=== PATIENT | female | born 1955 | race Caucasian/White ===

== ENCOUNTER → 2017-07-09 | Outpatient (CLI) | payer OTHER ==
[~2017-07-09] MED LIST: REGADENOSON 0.4 MG/5 ML SYRINGE ONE
== END | disposition home or self-care (01) ==
LOC: CFH 12:11
PROVIDERS: ATTEND Internal Medicine Cardiovascular Disease
DX: R07.89 Other chest pain (principal); I10 Essential (primary) hypertension
CPT/HCPCS: 78452; 93017; A9502; J2785; 93306

== ENCOUNTER 2017-12-03 17:26 | Emergency (ER) | payer OTHER ==
[~2017-12-03] VITALS: Ht 149.9 cm; Wt 84.1 kg
[2017-12-03] MEDS ORDERED: KETOROLAC 30 MG/1 ML IM ONE (22:30)
[2017-12-03] MEDS ORDERED: KETOROLAC 30 MG/1 ML ONE (22:32)
[2017-12-03 22:38] VITALS: BP 129/74
== END 2017-12-03 22:40 | disposition home or self-care (01) ==
LOC: ED 22:09
DX: S40.012A Contusion of left shoulder, initial encounter (principal); S09.90XA Unspecified injury of head, initial encounter; I10 Essential (primary) hypertension; Z87.891 Personal history of nicotine dependence; W01.0XXA Fall on same level from slipping, tripping and stumbling without subsequent striking against object, initial encounter; Y93.89 Activity, other specified; Y92.009 Unspecified place in unspecified non-institutional (private) residence as the place of occurrence of the external cause; Y99.9 Unspecified external cause status
CPT/HCPCS: 70450; 72125; 73030; 73090; 96372; 99284; J1885

== ENCOUNTER 2018-08-20 14:18 | Emergency (ER) | payer OTHER ==
[~2018-08-20] VITALS: Ht 149.9 cm; Wt 84.3 kg
[2018-08-20 14:28] VITALS: BP 142/86
[2018-08-20] MEDS ORDERED: BP MED ×2 (14:57)
[2018-08-20] MEDS ORDERED: HYDR1TAB12 PO (14:57)
== END 2018-08-20 15:50 | disposition home or self-care (01) ==
LOC: ED 15:15
DX: B34.9 Viral infection, unspecified (principal); G89.29 Other chronic pain; I10 Essential (primary) hypertension
CPT/HCPCS: 71046; 87081; 87880; 99285

== ENCOUNTER 2021-06-21 13:41 | Emergency (ER) | payer OTHER ==
[~2021-06-21] VITALS: Ht 149.9 cm; Wt 84.8 kg
[~2021-06-21 13:41] MED LIST changes: +AMLO5TAB4 PO; +ASPI-963 PO/NG; +ATOR40TA78 PO; +BP MED; +CLOP75TA PO; +CYCL5TAB PO; +DOXY100T PO; +HYDR1TAB13 PO; +HYDR1TAB16 PO; +METO50TA82 PO; -REGADENOSON 0.4 MG/5 ML SYRINGE ONE
[2021-06-21 13:49] VITALS: BP 117/87
== END 2021-06-21 15:08 | disposition home or self-care (01) ==
LOC: ED 13:50
DX: S21.112D Laceration without foreign body of left front wall of thorax without penetration into thoracic cavity, subsequent encounter (principal); I10 Essential (primary) hypertension; X58.XXXD Exposure to other specified factors, subsequent encounter
CPT/HCPCS: 99281